=== PATIENT | male | born 1940 | race Hispanic/Latino ===

== ENCOUNTER 2017-10-22 17:43 | Inpatient (IN) | payer MEDICARE ==
[~2017-10-22] VITALS: Ht 182.9 cm; Wt 90.3 kg
[~2017-10-22 17:43] MED LIST: ENALAPRIL; GLYBURIDE 6 MG; HYDROCODONE 7.5/325; METFORMIN 1000; Z.0.ATORVASTATIN CA2
[2017-10-22] MEDS ORDERED: IBUPROFEN 400 MG TAB PO STA (18:08)
[2017-10-22] MEDS ORDERED: SODIUM CHLORIDE 0.9% 1000ML 1,000 ML IV STA (18:08)
[2017-10-22] MEDS ORDERED: SODIUM CHLORIDE 0.9% 1000ML 1,000 ML ONE (18:09)
[2017-10-22] MEDS ORDERED: ONDANSETRON HCL 4 MG ORAL DISINTEGRATING TAB PO ONE (18:15)
[2017-10-22] MEDS ORDERED: CEFTRIAXONE SOD 1 GM VIAL IM ONE (18:15)
[2017-10-22 18:16] LABS: BASOPHILS % 0.2 % (0.0-1.0); HEMATOCRIT 42.7 % (38.2-49.6); LYMPHOCYTES # (AUTO) 0.6 (1.0-3.2); LYMPHOCYTES % 4.8 % (18.0-39.1); MEAN CORPUSCULAR HEMOGLOBIN 29.7 pg (28-32); MEAN CORPUSCULAR HGB CONC 35.1 g/dL (31-35); MEAN CORPUSCULAR VOLUME 84.6 fL (81-99); MONOCYTES # (AUTO) 0.7 (0.2-0.8); MONOCYTES % 5.7 % (4.4-11.3); NEUTROPHILS # (AUTO) 10.5 (2.1-6.9); PLATELET COUNT 160 x10e3/uL (140-360); RED BLOOD COUNT 5.05 x10e6/uL (4.3-5.7); RED CELL DISTRIBUTION WIDTH 12.5 % (11.7-14.4)
[2017-10-22] MEDS ORDERED: DIATRIZOATE MEGL/DIATRIZOA SOD 30 ML BTL PO ONE (18:20)
[2017-10-22 18:27] LABS: INR 1.15; PARTIAL THROMBOPLASTIN TIME 28.6 seconds (23.8-35.5); PROTHROMBIN TIME 13.8 seconds (11.9-14.5)
[2017-10-22] MEDS ORDERED: ACETAMINOPHEN 1000 MG/100 ML IV STA ×2 (18:30→18:45)
[2017-10-22 18:38] LABS: ALANINE AMINOTRANSFERASE 18 IU/L (0-55); ALBUMIN 3.9 g/dL (3.5-5.0); ALBUMIN/GLOBULIN RATIO 1.2 (0.8-2.0); ALKALINE PHOSPHATASE 66 IU/L (40-150); AMYLASE 35 U/L (25-125); ANION GAP 14.9 mmol/L (8-16); BLOOD UREA NITROGEN 19 mg/dL (7-26); BUN/CREATININE RATIO 12 (6-25); CALCIUM 9.5 mg/dL (8.4-10.2); CARBON DIOXIDE 21 mmol/L (22-29); CHLORIDE 102 mmol/L (98-107); CREATINE KINASE 51 IU/L (30-200); CREATININE, SERUM 1.61 mg/dL (0.72-1.25); EST GLOMERULAR FILTRATION RATE 42 ML/MIN (60-); GLUCOSE 213 mg/dL (74-118); LIPASE 7 U/L (8-78); MAGNESIUM 1.8 MG/DL (1.3-2.1); POTASSIUM 3.9 mmol/L (3.5-5.1); SODIUM 134 mmol/L (136-145)
[2017-10-22] MEDS ORDERED: ACETAMINOPHEN 1000 MG/100 ML IV ONE (19:00)
[2017-10-22 19:09] LABS: CLARITY,URINE CLEAR (CLEAR); COLOR,URINE YELLOW (YELLOW); LEUKOCYTE ESTERASE ,URINE NEGATIVE (NEGATIVE); NITRITE,URINE NEGATIVE (NEGATIVE)
[2017-10-22 19:10] LABS: BILIRUBIN,URINE NEGATIVE (NEGATIVE); KETONES,URINE 2+ (NEGATIVE); PROTEIN,URINE DIPSTICK 1+ (NEGATIVE); URINE UROBILINOGEN 0.2 mg/dL (0.2 - 1)
[2017-10-22 19:22] LABS: EPITHELIAL CELLS,URINE RARE /LPF; WBC,URINE (MAN) 0-5 /HPF (0-5)
--- NOTE | 2017-10-22 19:30 | Diagnostic Imaging Report ---
Portable chest x-ray INDICATION: Fever, vomiting COMPARISON: None FINDINGS: Frontal view of the chest obtained at 1908 hours. The cardiac silhouette is normal. The pulmonary vascular markings are normal. The lungs demonstrate small focus of atelectasis over the right diaphragm. 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 Left lung is clear. The costophrenic angles are sharp. There is no pneumothorax. The osseous structures are intact and normal in appearance. IMPRESSION: Small focus of atelectasis over the right diaphragm. Signed by: Dr. Vonnie Madrigal MD on 10/22/2017 7:26 PM
[2017-10-22] MEDS ORDERED: PROMETHAZINE 12.5MG/ NACL 0.9% 12.5 MG/50 ML BAG IV ONE (20:00)
--- NOTE | 2017-10-22 20:25 | Diagnostic Imaging Report ---
CT Abdomen and Pelvis without contrast INDICATION: Abdominal pain nausea, vomiting TECHNIQUE: Thin collimation axial images obtained from the diaphragm to the level of the pubic symphysis without nonionic intravenous contrast. Oral contrast was administered. RADIATION DOSE: Total DLP: 593.14 mGy*cm Estimated effective dose: (DLP x 0.015 x size factor) mSv CTDIvol has been reviewed. It is below the limits set by the Radiation Protocol Committee (RPC). COMPARISON: None. ABDOMEN FINDINGS: Lung Bases: Bibasilar microatelectasis. Pericardial effusion measures 11 mm. Mild burden of coronary artery atherosclerosis. There is mild eventration of the right diaphragm. Liver: Decreased attenuation. No mass. Gallbladder: Present and appears normal. No ductal dilatation. Pancreas: Mild fatty atrophy. No mass or ductal dilatation. Spleen: Normal size without mass. Adrenal Glands: No evidence for mass. Kidneys: Right: No renal calculus. No cortical mass or hydronephrosis Left: No renal calculus. Low attenuating lesion in the upper pole measures 14 mm. No hydronephrosis Lymph Nodes: No lymphadenopathy. Aorta: Normal in diameter with scattered calcifications PELVIS FINDINGS: Bowel: Stomach: Contains enteric contrast and is normal.. Small Bowel: Contains enteric contrast in the proximal jejunum. No bowel wall thickening or dilatation.. Large Bowel: Unopacified. No mural thickening or dilatation. No diverticula. Appendix: Normal. Bladder: Submucosal fat deposition at the dome. No intraluminal calculi. Prostate gland measures 4.3 x 6.1 cm. Ureters: No ureteral dilatation or calculus. Soft tissues: Fat-containing left inguinal hernia. A skin tag in the right lower quadrant measures 12 mm. Bones: Mild to moderate degenerative changes of the spine. No compression deformities. No lytic or blastic lesions. IMPRESSION: 1. No evidence for bowel obstruction or inflammation. Normal appendix. 2. No evidence of renal calculus or obstructive uropathy. 3. Low attenuating lesion in the left kidney is likely a cyst. 4. Hepatic steatosis. 5. Bibasilar atelectasis. Small pericardial effusion. Signed by: Dr. Vonnie Madrigal MD on 10/22/2017 8:21 PM
[2017-10-22] MEDS ORDERED: DEXTROSE 50% SYRINGE 50 ML IV PRN (21:00)
[2017-10-22] MEDS ORDERED: MORPHINE SULFATE 2 MG/ML SYR IV PRN (21:00)
[2017-10-22] MEDS ORDERED: ONDANSETRON HCL 4 MG ORAL DISINTEGRATING TAB PO PRN (21:00)
--- OUTSIDE RECORDS SUMMARY | 2017-10-22 21:39 | XMS REPORT ---
Author [facility] Address Unknown Phone Unavailable Care Team Providers Care Core Mounter Name Role Phone FREDY RICO Unavailable Unavailable Problems This patient has no known problems. Allergies, Adverse Reactions, Alerts This patient has no known allergies or adverse reactions. Medications This patient has no known medications. 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 The cardiac silhouette is normal. The pulmonary vascular markings are normal. The lungs demonstrate small focus of atelectasis over the right diaphragm. 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 Left lung is clear. The costophrenic angles are sharp. There is no pneumothorax. The osseous structures are intact and normal in appearance. IMPRESSION: Small focus of atelectasis over the right diaphragm. Signed by: Dr. Lauren Madrigal MD on 10/22/2017 7:26 PM Dictated By: LAUREN MADRIGAL MD 25 Transcribed By: ELISA on 10/22/171925 COPY TO: ADRI GONZALEZ NP CT ABDOMEN/PELVIS WO [place] [address] Patient Name: CHESTER EDOUARD MR #: [id number] : 1940 Age/Sex: 76/M Req # : [id number] Adm Physician: Ordered by: ADRI GONZALEZ NP Report #: [id number] Location: ER Room/Bed: Procedure: 0530- 0031 CT/CT ABDOMEN/PELVIS WO Exam Date: 10/22/17 Exam Time: 1949 REPORT STATUS: Signed CT Abdomen and Pelvis without contrast INDICATION: Abdominal pain nausea, vomiting TECHNIQUE: Thin collimation axial images obtained from the diaphragm to the level of the pubic symphysis without nonionic intravenous contrast. Oral contrast was administered. RADIATION DOSE: Total DLP: 593.14 mGy*cm Estimated effective dose: (DLP x 0.015 x size factor) mSv CTDIvol has been reviewed. It is below the limits set by the Radiation Protocol Committee (RPC). COMPARISON: None. ABDOMEN FINDINGS: Lung Bases: Bibasilar microatelectasis. Pericardial effusion measures 11 mm. Mild burden of coronary artery atherosclerosis. There is mild eventration of the right diaphragm. Liver: Decreased attenuation. No mass. Gallbladder: Present and appears normal. No ductal dilatation. Pancreas: Mild fatty atrophy. No mass or ductal dilatation. Spleen: Normal size without mass. Adrenal Glands: No evidence for mass. Kidneys: Right: No renal calculus. No cortical mass or hydronephrosis Left: No renal calculus. Low attenuating lesion in the upper pole measures 14 mm. No hydronephrosis Lymph Nodes: No lymphadenopathy. Aorta: Normal in diameter with scattered calcifications PELVIS FINDINGS: Bowel: Stomach: Contains enteric contrast and is normal.. Small Bowel: Contains enteric contrast in the proximal jejunum. No bowel wall thickening or dilatation.. Large Bowel: Unopacified. No mural thickening or dilatation. No diverticula. Appendix: Normal. Bladder: Submucosal fat deposition at the dome. No intraluminal calculi. Prostate gland measures 4.3 x 6.1 cm. Ureters: No ureteral dilatation or calculus. Soft tissues: Fat-containing left inguinal hernia. A skin tag in the right lower quadrant measures 12 mm. Bones: Mild to moderate degenerative changes of the spine. No compression deformities. No lytic or blastic lesions. IMPRESSION: 1. No evidence for bowel obstruction or inflammation. Normal appendix. 2. No evidence of renal calculus or obstructive uropathy. 3. Low attenuating lesion in the left kidney is likely a cyst. 4. Hepatic steatosis. 5. Bibasilar atelectasis. Small pericardial effusion. Signed by: Dr. Lauren Madrigal MD on 2017 8:21 PM Dictated By: LAUREN MADRIGAL MD 20 Transcribed By: ELISA on 10/22/172020 COPY TO: ADRI GONZALEZ NP
[2017-10-23] VITALS (8 sets, daily range): BP systolic 114–178; BP diastolic 59–96
[2017-10-23] MEDS ORDERED: GABAPENTIN300 MG PO (04:22)
[2017-10-23] MEDS ORDERED: GLIMEPIRIDE2 MG PO (04:22)
[2017-10-23] MEDS ORDERED: LOSARTAN POTASS25 MG PO (04:22)
[2017-10-23] MEDS ORDERED: TAMSULOSIN HCL0.4 MG PO (04:22)
[2017-10-23 06:01] LABS: BASOPHILS % 0.2 % (0.0-1.0); HEMATOCRIT 38.4 % (38.2-49.6); HEMOGLOBIN 13.4 g/dL (14.0-18.0); LYMPHOCYTES # (AUTO) 0.9 (1.0-3.2); MEAN CORPUSCULAR HEMOGLOBIN 30.2 pg (28-32); MEAN CORPUSCULAR HGB CONC 34.9 g/dL (31-35); MEAN CORPUSCULAR VOLUME 86.7 fL (81-99); MONOCYTES # (AUTO) 1.3 (0.2-0.8); MONOCYTES % 10.9 % (4.4-11.3); NEUTROPHILS # (AUTO) 9.3 (2.1-6.9); NEUTROPHILS % 80.4 % (38.7-80.0); PLATELET COUNT 142 x10e3/uL (140-360); RED BLOOD COUNT 4.43 x10e6/uL (4.3-5.7); RED CELL DISTRIBUTION WIDTH 12.4 % (11.7-14.4)
[2017-10-23 06:38] LABS: ALBUMIN 3.2 g/dL (3.5-5.0); ALBUMIN/GLOBULIN RATIO 1.1 (0.8-2.0); ANION GAP 12.1 mmol/L (8-16); CALCIUM 8.9 mg/dL (8.4-10.2); CREATININE, SERUM 1.44 mg/dL (0.72-1.25); POTASSIUM 4.1 mmol/L (3.5-5.1)
[2017-10-23] MEDS: INSULIN REGULAR, HUMAN 100 UNIT/1 ML 3ML VIAL SQ SCH ×5 (07:30→20:25)
[2017-10-23] MEDS: CEFEPIME HCL 1 GM VIAL IV SCH ×2 (09:30→20:42)
[2017-10-23] MEDS ORDERED: SODIUM CHLORIDE 0.9% 250ML 250 ML ONE (09:47)
[2017-10-23] MEDS: VANCOMYCIN 750MG/NS 150ML IVPB 150 ML IV SCH ×2 (10:00→20:42)
--- NOTE | 2017-10-23 10:23 | History and Physical ---
CHIEF COMPLAINT: Left knee swelling and pain and abdominal pain. HISTORY OF PRESENT ILLNESS: Patient is a 76-year-old male complaining of left knee pain for the past few days and then subsequent abdominal pain associated with nausea and vomiting. Patient came in with a high fever through the emergency room. The patient had a fever of 103.1. Blood pressure was elevated. He had his left knee replacement approximately 6 months ago. It was well until recently. The patient is otherwise stable at this time. PAST MEDICAL HISTORY 1. Diabetes, type 2, on oral hypoglycemic medications. 2. Dyslipidemia. 3. Osteoarthritis with left knee replacement. 4. Hypertension. PAST SURGICAL HISTORY: Left knee replacement. SOCIAL HISTORY: Patient does not smoke or use alcohol. No recreational drugs. ALLERGIES: NO KNOWN ALLERGIES. HOME MEDICATIONS: List is reviewed. REVIEW OF SYSTEMS: Left knee pain and swelling and subsequent abdominal pain, nausea and vomiting. Fever. PHYSICAL EXAMINATION VITAL SIGNS: Temperature is 103. Blood pressure 196/98. Pulse rate 117. Respirations 30. GENERAL: The patient is awake. He is alert. He is not in any distress. HEENT: Normocephalic, atraumatic, anicteric. NECK: Supple grossly. PULMONARY: Diminished breath sounds at bases. No coarses or wheezing. CARDIOVASCULAR: S1 and S2. Tachycardia. ABDOMEN: Soft. No distention. EXTREMITIES: No gross cyanosis. There is edema of the left knee, tender to touch and warm. NEUROLOGIC: No focal deficit. CT of the abdomen and pelvis: No acute abnormality. Bibasilar atelectasis. There is small pericardial effusion. Chest x-ray is unremarkable. LABORATORY: WBC is 11.8, hemoglobin 15, hematocrit 43, platelets 160. Chemistry: Sodium is 136, potassium 4.1, chloride 103, bicarb 23, BUN 19, creatinine 1.4. Glucose is 161. Urinalysis is positive for 2+ leukocyte esterase. IMPRESSION 1. High fever of 103.1. 2. Left knee swelling and tender with warmness, possible knee infection. 3. Abdominal pain, nausea and vomiting, improving. 4. Atelectasis of the lung. PLAN: Vancomycin IV and cefepime IV. Consultation with Dr. Romario Montana of orthopedics. CT of chest and left knee without contrast. Home medications. Insulin treatment. Insulin sliding-scale coverage. Pain control. Will monitor the patient closely at this time. Job#: [id number]
--- NOTE | 2017-10-23 12:42 | Diagnostic Imaging Report ---
PROCEDURE:CT CHEST WITHOUT CONTRAST COMPARISON:Patients [facility], DX, CHEST SINGLE (PORTABLE), 10/22/2017, 19:08. [facility], CT, CT ABDOMEN/PELVIS WO, 10/22/2017, 19:56. INDICATIONS:Fever TECHNIQUE: Routine protocol Volumetric CT abdomen and pelvis. No intravenous or enteric contrast. Multiplanar reformatted images. DLP: 545.39 FINDINGS: Lungs: Mild bibasilar interstitial scar. No focal airspace disease. Airways: Trace bibasilar cylindrical bronchiectasis. No bronchial wall thickening. Otherwise, normal. Pleura: Trace right effusion. No left effusion. Lymph nodes: Normal Pulmonary arteries: Normal caliber. Pulmonary diameter 2.5 cm. Normal intraparenchymal pulmonary artery caliber. Thoracic aorta and great vessels: Normal caliber. Mild arch and descending thoracic aorta atherosclerosis. Heart and pericardium: Normal size. Trace pericardial effusion without pericardial thickening. Moderate coronary artery calcification. Subdiaphragmatic organs: Imaged portions are grossly unremarkable. Skeleton: Intact. Soft tissues: Normal CONCLUSION: Trace right pleural effusion. No conspicuous etiology for fever. Dictated by: Rod Copeland M.D. on 10/23/2017 at 12:44 Electronically approved by: Rod Copeland M.D. on 10/23/2017 at 12:44
[2017-10-23] MEDS: ACETAMINOPHEN 325 MG TAB PO PRN (16:40)
--- NOTE | 2017-10-23 18:13 | Diagnostic Imaging Report ---
CT scan of the LEFT KNEE, WITHOUT injected contrast. TECHNIQUE: Standard departmental protocols were used. Sagittal and coronal reformatted images were obtained. HISTORY: Swelling, pain, fever, surgery in March COMPARISON: None available FINDINGS: Beam carias artifact partially limits regional evaluation. Bone: No acute displaced fracture. No aggressive osseous lesion. Joint: Status post total knee arthroplasty. No evidence of hardware loosening or failure, within the limitations of this exam. Moderate amount of nonspecific low-density fluid in the region of the suprapatellar joint recess. Soft Tissues: Nonspecific infrapatellar fat stranding, in the region of Hoffa's fat pad. IMPRESSION: 1. Status post total knee arthroplasty. Recommend correlation with routine knee radiographs given the inherent metallic beam carias artifact on CT. 2. Moderate nonspecific low density fluid in the region of the suprapatellar joint recess. 3. Nonspecific infrapatellar fat stranding, may reflect edema, fluid, and/or inflammatory changes given the provided history. Signed by: Dr. Santi Oleary D.O., M.M.M. on 10/23/2017 6:09 PM
[2017-10-23] MEDS: HYDROCODONE/APAP 7.5MG-325MG 1 EA TAB PO PRN (21:19)
[2017-10-24] VITALS (7 sets, daily range): BP systolic 136–165; BP diastolic 74–92
[2017-10-24] MEDS: ACETAMINOPHEN 325 MG TAB PO PRN ×2 (06:00→21:22)
[2017-10-24 07:47] LABS: BASOPHILS % 0.1 % (0.0-1.0); HEMOGLOBIN 14.2 g/dL (14.0-18.0); LYMPHOCYTES # (AUTO) 0.9 (1.0-3.2); LYMPHOCYTES % 7.7 % (18.0-39.1); MEAN CORPUSCULAR HEMOGLOBIN 29.8 pg (28-32); MEAN CORPUSCULAR HGB CONC 34.6 g/dL (31-35); MEAN CORPUSCULAR VOLUME 86.1 fL (81-99); MONOCYTES # (AUTO) 0.9 (0.2-0.8); NEUTROPHILS # (AUTO) 9.9 (2.1-6.9); NEUTROPHILS % 83.8 % (38.7-80.0); PLATELET COUNT 160 x10e3/uL (140-360); RED BLOOD COUNT 4.76 x10e6/uL (4.3-5.7); RED CELL DISTRIBUTION WIDTH 12.2 % (11.7-14.4)
[2017-10-24] MEDS: CEFEPIME HCL 1 GM VIAL IV SCH ×2 (10:02→21:21)
[2017-10-24] MEDS: INSULIN REGULAR, HUMAN 100 UNIT/1 ML 3ML VIAL SQ SCH ×4 (10:17→21:20)
[2017-10-24] MEDS: VANCOMYCIN 750MG/NS 150ML IVPB 150 ML IV SCH ×2 (10:34→21:54)
[2017-10-24] MEDS: HYDROCODONE/APAP 7.5MG-325MG 1 EA TAB PO PRN (10:36)
[2017-10-24 10:44] LABS: BODY FLUID APPEARANCE SL.CLOUDY; BODY FLUID COLOR YELLOW; BODY FLUID TYPE SYNOVIAL
[2017-10-24 11:03] LABS: RBC,BODY FLUID 1287 cells/uL; WBC,BODY FLUID 36531 cells/uL
[2017-10-24 12:57] LABS: LYMPHOCYTES,BODY FLUID 2 %; MONO/MACROPHG,BODY FLUID 2 %; NEUTROPHILS,BODY FLUID 96 %
[2017-10-24] MEDS: GABAPENTIN 300 MG CAP PO SCH (17:00)
[2017-10-24] MEDS: GLIMEPIRIDE 2 MG TAB PO SCH (17:00)
[2017-10-24] MEDS ORDERED: SODIUM CHLORIDE 0.9% 250ML 250 ML ONE (21:48)
[2017-10-25 01:14] VITALS: BP 152/74
[2017-10-25 06:35] VITALS: BP 168/77
[2017-10-25] MEDS: INSULIN REGULAR, HUMAN 100 UNIT/1 ML 3ML VIAL SQ SCH ×5 (07:30→16:51)
[2017-10-25 08:29] VITALS: BP 159/85
[2017-10-25] MEDS: HYDROCODONE/APAP 7.5MG-325MG 1 EA TAB PO PRN ×2 (08:36→08:38)
[2017-10-25] MEDS: GLIMEPIRIDE 2 MG TAB PO SCH ×2 (09:00→16:50)
[2017-10-25] MEDS: TAMSULOSIN HCL 0.4 MG CAP PO SCH (09:00)
[2017-10-25] MEDS: GABAPENTIN 300 MG CAP PO SCH ×2 (09:00→17:00)
[2017-10-25] MEDS: LOSARTAN POTASSIUM 25 MG TAB PO SCH (09:00)
[2017-10-25] MEDS: CEFEPIME HCL 1 GM VIAL IV SCH ×2 (09:30→20:35)
[2017-10-25] MEDS: VANCOMYCIN 750MG/NS 150ML IVPB 150 ML IV SCH ×2 (10:00→21:36)
[2017-10-25 16:28] VITALS: BP 170/86
[2017-10-25] MEDS ORDERED: BISACODYL 10 MG SUPP PR NR (19:15)
[2017-10-25] MEDS ORDERED: MAGNESIUM HYDROXIDE 30 ML UDC PO PRN (19:15)
[2017-10-25 19:31] VITALS: BP 147/78
[2017-10-25] MEDS: ACETAMINOPHEN 325 MG TAB PO PRN (19:38)
[2017-10-25] MEDS: SENNA-S TABLET PO SCH (20:35)
[2017-10-26 00:20] VITALS: BP 131/74
[2017-10-26 04:45] VITALS: BP 139/75
[2017-10-26 07:28] VITALS: BP 150/85
[2017-10-26] MEDS: INSULIN REGULAR, HUMAN 100 UNIT/1 ML 3ML VIAL SQ SCH ×4 (07:30→21:09)
[2017-10-26] MEDS: LOSARTAN POTASSIUM 25 MG TAB PO SCH (09:00)
[2017-10-26] MEDS: GLIMEPIRIDE 2 MG TAB PO SCH ×2 (09:00→17:12)
[2017-10-26] MEDS: SENNA-S TABLET PO SCH ×2 (09:00→21:08)
[2017-10-26] MEDS: TAMSULOSIN HCL 0.4 MG CAP PO SCH (09:00)
[2017-10-26] MEDS: GABAPENTIN 300 MG CAP PO SCH ×2 (09:00→17:12)
[2017-10-26] MEDS: CEFEPIME HCL 1 GM VIAL IV SCH ×2 (09:30→21:09)
[2017-10-26] MEDS: VANCOMYCIN 750MG/NS 150ML IVPB 150 ML IV SCH ×3 (10:00→23:40)
[2017-10-26] MEDS: ACETAMINOPHEN 325 MG TAB PO PRN ×2 (11:30→19:33)
[2017-10-26 11:36] VITALS: BP 142/82
[2017-10-26] MEDS ORDERED: SODIUM CHLORIDE 0.9% 250ML 250 ML ONE (11:49)
[2017-10-26 20:19] VITALS: BP 160/87
--- NOTE | 2017-10-26 22:01 | Consultation ---
DATE OF CONSULTATION: REASON FOR CONSULTATION: Fevers, chills, concern about infected knee. HISTORY OF PRESENT ILLNESS: This patient who is a 77-year-old male, 6 months ago had total knee replacement on the left. He was doing well for 6 months, which was done by Dr. Stauffer. Now, he is coming with fever, chills for 1 day, swelling and pain in the knee. Patient is being admitted. PAST MEDICAL HISTORY: Diabetes and hypertension. PAST SURGICAL HISTORY: Total knee replacement. ALLERGIES: NKA. SOCIAL HISTORY: There is no smoking, drug abuse, alcohol abuse. FAMILY HISTORY: Unremarkable. PHYSICAL EXAMINATION GENERAL: He is currently alert, oriented, does not seem to be in acute distress. VITALS: Stable. Currently afebrile. HEENT: Not icteric. NECK: Supple. CHEST: Clear. EXTREMITIES: The knee, there is effusion, there is redness and swelling. The fluid was aspirated, showed WBC of 36,000. IMPRESSION: Concern about infected knee. Agree with vancomycin, cefepime. Will keep the vancomycin level at 15. Obtain a sed rate, C-reactive protein. Culture still pending. Will follow. Job#: [id number] CQ
[2017-10-26 23:19] VITALS: BP 160/87
[2017-10-27 00:13] VITALS: BP 120/58
[2017-10-27 05:38] VITALS: BP 141/72
[2017-10-27 06:15] LABS: BASOPHILS % 0.3 % (0.0-1.0); EOSINOPHILS % 0.5 % (0.0-6.0); HEMATOCRIT 35.9 % (38.2-49.6); HEMOGLOBIN 12.3 g/dL (14.0-18.0); LYMPHOCYTES # (AUTO) 0.7 (1.0-3.2); MEAN CORPUSCULAR HEMOGLOBIN 29.3 pg (28-32); MEAN CORPUSCULAR HGB CONC 34.3 g/dL (31-35); MEAN CORPUSCULAR VOLUME 85.5 fL (81-99); MONOCYTES # (AUTO) 0.7 (0.2-0.8); MONOCYTES % 11.1 % (4.4-11.3); NEUTROPHILS # (AUTO) 4.9 (2.1-6.9); NEUTROPHILS % 76.2 % (38.7-80.0); PLATELET COUNT 187 x10e3/uL (140-360); RED CELL DISTRIBUTION WIDTH 12.3 % (11.7-14.4)
[2017-10-27 06:28] LABS: ANION GAP 11.6 mmol/L (8-16); CALCIUM 8.9 mg/dL (8.4-10.2); CREATININE, SERUM 1.18 mg/dL (0.72-1.25); POTASSIUM 3.6 mmol/L (3.5-5.1)
[2017-10-27] MEDS: INSULIN REGULAR, HUMAN 100 UNIT/1 ML 3ML VIAL SQ SCH ×5 (08:10→20:25)
[2017-10-27] MEDS: LOSARTAN POTASSIUM 25 MG TAB PO SCH (08:52)
[2017-10-27] MEDS: GLIMEPIRIDE 2 MG TAB PO SCH ×2 (08:52→16:34)
[2017-10-27] MEDS: ACETAMINOPHEN 325 MG TAB PO PRN ×2 (08:52→20:44)
[2017-10-27] MEDS: CEFEPIME HCL 1 GM VIAL IV SCH ×2 (08:52→20:44)
[2017-10-27] MEDS: GABAPENTIN 300 MG CAP PO SCH ×2 (08:52→16:34)
[2017-10-27] MEDS: SENNA-S TABLET PO SCH ×2 (08:52→20:44)
[2017-10-27] MEDS: TAMSULOSIN HCL 0.4 MG CAP PO SCH (08:52)
[2017-10-27 09:45] VITALS: BP 170/84
[2017-10-27] MEDS: VANCOMYCIN 750MG/NS 150ML IVPB 150 ML IV SCH ×2 (14:00→22:00)
[2017-10-27 16:36] VITALS: BP 160/84
[2017-10-27 20:27] VITALS: BP 157/70
[2017-10-28] VITALS: BP 129/63
[2017-10-28 07:09] LABS: BASOPHILS % 0.3 % (0.0-1.0); EOSINOPHILS # (AUTO) 0.1 (0.0-0.4); EOSINOPHILS % 0.8 % (0.0-6.0); HEMATOCRIT 34.9 % (38.2-49.6); HEMOGLOBIN 12.3 g/dL (14.0-18.0); LYMPHOCYTES # (AUTO) 0.9 (1.0-3.2); LYMPHOCYTES % 14.6 % (18.0-39.1); MEAN CORPUSCULAR HEMOGLOBIN 29.9 pg (28-32); MEAN CORPUSCULAR HGB CONC 35.2 g/dL (31-35); MEAN CORPUSCULAR VOLUME 84.7 fL (81-99); MONOCYTES # (AUTO) 0.7 (0.2-0.8); MONOCYTES % 10.7 % (4.4-11.3); NEUTROPHILS # (AUTO) 4.5 (2.1-6.9); NEUTROPHILS % 73.3 % (38.7-80.0); PLATELET COUNT 223 x10e3/uL (140-360); RED BLOOD COUNT 4.12 x10e6/uL (4.3-5.7); RED CELL DISTRIBUTION WIDTH 12.2 % (11.7-14.4)
[2017-10-28] MEDS: INSULIN REGULAR, HUMAN 100 UNIT/1 ML 3ML VIAL SQ SCH ×4 (07:30→21:05)
[2017-10-28 07:33] LABS: BLOOD UREA NITROGEN 15 mg/dL (7-26); BUN/CREATININE RATIO 14 (6-25); CALCIUM 8.9 mg/dL (8.4-10.2); CARBON DIOXIDE 25 mmol/L (22-29); CHLORIDE 105 mmol/L (98-107); CREATININE, SERUM 1.11 mg/dL (0.72-1.25); EST GLOMERULAR FILTRATION RATE > 60 ML/MIN (60-); GLUCOSE 111 mg/dL (74-118); SODIUM 137 mmol/L (136-145)
[2017-10-28] MEDS: GLIMEPIRIDE 2 MG TAB PO SCH ×2 (09:00→18:55)
[2017-10-28] MEDS: GABAPENTIN 300 MG CAP PO SCH ×2 (09:00→18:55)
[2017-10-28] MEDS: TAMSULOSIN HCL 0.4 MG CAP PO SCH (09:00)
[2017-10-28] MEDS: LOSARTAN POTASSIUM 25 MG TAB PO SCH (09:00)
[2017-10-28] MEDS: CEFEPIME HCL 1 GM VIAL IV SCH ×2 (09:00→21:30)
[2017-10-28] MEDS: SENNA-S TABLET PO SCH ×2 (09:00→21:00)
[2017-10-28] MEDS: ACETAMINOPHEN 325 MG TAB PO PRN ×2 (09:01→21:45)
[2017-10-28 09:30] VITALS: BP 191/86
[2017-10-28 09:58] VITALS: BP 191/86
--- NOTE | 2017-10-28 12:41 | Diagnostic Imaging Report ---
PROCEDURE: A single AP view of the chest. COMPARISON: None. INDICATIONS: PICC LINE PLACEMENT FINDINGS: Lines/tubes: Right PICC with its tip at the cavoatrial junction. Lungs: The lungs are well inflated and clear. There is no evidence of pneumonia or pulmonary edema. Pleura: There is no pleural effusion or pneumothorax. Heart and mediastinum: The heart and the mediastinum are unremarkable. Bones: No acute bony abnormality. IMPRESSION: No acute cardiopulmonary disease. Kit Shelton D.O. Dictated by: Kit Shelton D.O. on 10/28/2017 at 12:44 Electronically approved by: Kit Shelton D.O. on 10/28/2017 at 12:44
[2017-10-28 16:02] VITALS: BP 152/73
[2017-10-28 17:50] LABS: BODY FLUID APPEARANCE TURBID; BODY FLUID COLOR STRAW; BODY FLUID TYPE SYNOVIAL
[2017-10-28 18:36] LABS: RBC,BODY FLUID 257 cells/uL; WBC,BODY FLUID 7475 cells/uL
[2017-10-28 19:17] LABS: MONO/MACROPHG,BODY FLUID 2 %; NEUTROPHILS,BODY FLUID 98 %
[2017-10-28] MEDS ORDERED: SODIUM CHLORIDE 0.9% 250ML 250 ML ONE (22:00)
[2017-10-28] MEDS: VANCOMYCIN 750MG/NS 150ML IVPB 150 ML IV SCH (22:00)
[2017-10-29] MEDS: INSULIN REGULAR, HUMAN 100 UNIT/1 ML 3ML VIAL SQ SCH ×4 (07:30→21:00)
[2017-10-29 08:15] VITALS: BP 144/72
[2017-10-29 09:20] VITALS: BP 144/72
[2017-10-29] MEDS: LOSARTAN POTASSIUM 25 MG TAB PO SCH (09:20)
[2017-10-29] MEDS: VANCOMYCIN 750MG/NS 150ML IVPB 150 ML IV SCH ×2 (09:20→22:00)
[2017-10-29] MEDS: TAMSULOSIN HCL 0.4 MG CAP PO SCH (09:20)
[2017-10-29] MEDS: SENNA-S TABLET PO SCH ×2 (09:20→22:05)
[2017-10-29] MEDS: GLIMEPIRIDE 2 MG TAB PO SCH ×2 (09:20→17:00)
[2017-10-29] MEDS: GABAPENTIN 300 MG CAP PO SCH ×2 (09:20→17:00)
[2017-10-29] MEDS: CEFEPIME HCL 1 GM VIAL IV SCH ×2 (09:27→21:45)
[2017-10-29] MEDS ORDERED: SENNOSIDES 8.6 MG TAB PO SCH (09:30)
[2017-10-29] MEDS: HYDROCODONE/APAP 10MG-325MG TAB PO PRN (10:08)
[2017-10-29 12:42] VITALS: BP 131/68
--- NOTE | 2017-10-29 15:04 | Diagnostic Imaging Report ---
Labeled WBC Study Reason for exam: 77 M s/p left knee arthroplasty in 03/2017 with worsening pain since time of surgery. Comparison: CT left knee 09/24/2017; Report: The patient's own white blood cells were labeled with Tc-99m HMPAO 17 mCi by a commercial radiopharmacy. Images of the feet were obtained at 2.5 hours post administration of the labeled white blood cells. On the images at 2.5 hours post reinjection of the labeled WBC's, diffusely increased tracer activity is seen contiguously in the soft tissues of the left thigh distally and in the left lower leg proximally and surrounding the knee joint. Focal areas of increased tracer are seen surrounding the knee joint but not involving the stems of either the femoral or tibial components of the left knee prosthesis. On the images are 24 hours post reinjection of the labeled WBC's, increased tracer is seen along the femoropatellar ligament and diffusely surrounding the ligament. Focal increased tracer seen around the left knee is slightly decreased compared to the 2.5 hour images. No tracer is seen along either the femoral or tibial components of the left knee prosthesis. IMPRESSION: 1. Labeled white blood cell study has limited value in assessment of the painful prosthesis that is less than 1 year. This patient's arthroplasty was just under 7 months ago. Nonetheless, very definite soft tissue inflammation that involves the left lower extremity and and more focally in the femoropatellar ligament and adjacent soft tissue, but no tracer is seen along either component of the left knee prosthesis to suggest that infection or loosening of the prosthesis is present. 2. Three-phase bone scan has been ordered for this patient, however, the study lacks specificity in the setting of the painful prosthesis, especially for prostheses placed less than one year previously. Three-phase bone scan won't add specific information to this evaluation. Please contact Nuclear Medicine if study should still be performed. Signed by: Dr. Cecelia Lambert M.D. on 10/29/2017 3:00 PM
[2017-10-29 16:08] VITALS: BP 143/76
[2017-10-29 20:00] VITALS: BP 158/79
[2017-10-29 20:02] VITALS: BP 158/79
[2017-10-29] MEDS: ACETAMINOPHEN 325 MG TAB PO PRN (21:39)
[2017-10-30] VITALS (10 sets, daily range): BP systolic 124–178; BP diastolic 60–87
[2017-10-30] MEDS: HYDROCODONE/APAP 10MG-325MG TAB PO PRN (06:53)
[2017-10-30] MEDS: INSULIN REGULAR, HUMAN 100 UNIT/1 ML 3ML VIAL SQ SCH ×4 (07:30→20:35)
[2017-10-30] MEDS: SENNA-S TABLET PO SCH ×2 (08:40→22:23)
[2017-10-30] MEDS: TAMSULOSIN HCL 0.4 MG CAP PO SCH (08:40)
[2017-10-30] MEDS: LOSARTAN POTASSIUM 25 MG TAB PO SCH (08:40)
[2017-10-30] MEDS: GLIMEPIRIDE 2 MG TAB PO SCH ×2 (08:40→16:52)
[2017-10-30] MEDS: CEFEPIME HCL 1 GM VIAL IV SCH (08:40)
[2017-10-30] MEDS: GABAPENTIN 300 MG CAP PO SCH ×2 (08:40→16:52)
[2017-10-30] MEDS: VANCOMYCIN 750MG/NS 150ML IVPB 150 ML IV SCH ×2 (10:15→21:30)
--- NOTE | 2017-10-30 13:57 | Discharge Summary ---
CONSULTANTS 1. Dr. Santhosh Olmstead. 2. Dr. Brook Garrett. FINAL DIAGNOSES 1. Septic left knee. 2. Fever, resolved. 3. Leukocytosis, resolved. 4. Ambulatory dysfunction due to left knee infection and swelling. SUMMARY: This is a 77-year-old male who came in with high fever 103. Patient has had extensive workup. He has multiple imaging tests. The chest CT was done, was unremarkable. The left knee was done on October 23, shows status post total knee arthroplasty. There is moderate nonspecific low-density fluid in the region of the suprapatellar joint recess. There was nonspecific fat-stranding. The patient underwent multiple tests done for his fever including other tests including abdominal and pelvic CT as well. There is no focal infection noticed except for the left knee swelling and redness and pain. On his admission patient's BUN and creatinine were 19 and 1.6 due to his dehydration. He does have diabetes and on medication. His WBC on admission was 11.84. It is remaining stable. The patient underwent multiple workup including joint aspiration. The microbiology of the joint aspiration result of the Gram stain showed many WBC seen without bacteria. Other aspiration done the second time and pending for further tests. The Gram stain of the left knee aspiration showed white blood cell, no organism, and that was the second aspiration. Other tests including sed rate was elevated of 87. C-reactive protein was 224. The fluid that was drawn on the 1st was yellowish, cloudy fluid with WBC of 36,531 and RBC of 1287 with neutrophil 96%. The first fluid was drawn on October 24, and the second one was on October 28, again straw turbid color. The WBC went down to 7475 and the RBC to 257 with 98% neutrophil. He had other tests including a WBC scan, nuclear scan on October 28, finding of defined soft-tissue inflammation that involved the left lower extremity more focally in the femoropatellar ligament and adjacent soft tissue but no trace is seen along the left knee prosthesis or compartment. The patient is stable. He remained afebrile. He had a PICC line placement to the upper extremity for IV antibiotics. Consultation with Dr. Santhosh Olmstead, infectious disease. Arrangement had been made for the patient to go home with IV antibiotics. Discussed with the patient and his family that the patient will need to follow up with Dr. Jerry Stauffer, his orthopedic who did the left knee replacement approximately 6 to 7 months ago. The patient is otherwise stable, expressed all the understanding. Planning has been made. Patient will be discharged home with IV antibiotics and follow up with Dr. Stauffer as an outpatient. Discharge medication reconciliation is done. Resume home medication. Cornelius for pain. Celebrex as needed for pain. Senna-S for stool softener. IV antibiotic arranged. Patient will discharge home today. Activity as tolerated. [id number] diet. Job#: [id number] EV
[2017-10-30] MEDS: ACETAMINOPHEN 325 MG TAB PO PRN (19:59)
[2017-10-31 01:15] VITALS: BP 130/60
[2017-10-31 06:06] VITALS: BP 148/72
[2017-10-31] MEDS: INSULIN REGULAR, HUMAN 100 UNIT/1 ML 3ML VIAL SQ SCH (07:30)
[2017-10-31 07:43] VITALS: BP 122/71
[2017-10-31] MEDS: SENNA-S TABLET PO SCH (08:30)
[2017-10-31] MEDS: TAMSULOSIN HCL 0.4 MG CAP PO SCH (08:30)
[2017-10-31] MEDS: GABAPENTIN 300 MG CAP PO SCH (08:30)
[2017-10-31] MEDS: LOSARTAN POTASSIUM 25 MG TAB PO SCH (08:30)
[2017-10-31] MEDS: GLIMEPIRIDE 2 MG TAB PO SCH (08:30)
[2017-10-31] MEDS: HYDROCODONE/APAP 10MG-325MG TAB PO PRN (08:47)
[2017-10-31] MEDS: VANCOMYCIN 750MG/NS 150ML IVPB 150 ML IV SCH (09:00)
[2017-10-31] MEDS ORDERED: CELEBREX100 MG PO (09:55)
[2017-10-31] MEDS ORDERED: SENNA-DOCUSATE1 EACH PO (09:56)
[2017-10-31] MEDS ORDERED: NORCO 10-325 T1 EACH PO (09:57)
[2017-10-31 11:41] VITALS: BP 123/65
== END 2017-10-31 11:51 | disposition home or self-care (01) | DRG 560 ==
LOC: ER 17:43 → ERHOLD 21:36 → MED/SURG2 23:21
PROVIDERS: ADMIT Internal Medicine; ATTEND Internal Medicine
PROC: 0S9D3ZX Drainage of Left Knee Joint, Percutaneous Approach, Diagnostic (ICD-10-PCS; 2017-10-24)
PROC: 02HV33Z Insertion of Infusion Device into Superior Vena Cava, Percutaneous Approach (ICD-10-PCS; principal; 2017-10-28)
DX: T84.54XA Infection and inflammatory reaction due to internal left knee prosthesis, initial encounter (principal); M00.9 Pyogenic arthritis, unspecified; J98.11 Atelectasis; E87.0 Hyperosmolality and hypernatremia; I31.3 Pericardial effusion (noninflammatory); R10.9 Unspecified abdominal pain; E86.0 Dehydration; R73.9 Hyperglycemia, unspecified; Z79.84 Long term (current) use of oral hypoglycemic drugs; Z96.652 Presence of left artificial knee joint; I10 Essential (primary) hypertension; E78.5 Hyperlipidemia, unspecified
CPT/HCPCS: 36415; 36569; 71045; 71250; 74176; 78806; 80048; 80053; 80202; 81001; 82150; 82550; 82553; 82948; 83605; 83690; 83735; 84484; 84550; 85025; 85610; 85651; 85730; 86140; 87040; 87070; 87071; 87075; 87086; 87102; 87116; 87205; 87206; 88112; 88305; 89051; 89060; 93005; 93306; 99284; A9521; A9556; A9570; J0692; J0696; J2270; J2550; J7030; J7050

== ENCOUNTER 2022-10-16 14:46 | Inpatient (IN) | payer MEDICARE ==
[~2022-10-16] VITALS: Ht 182.9 cm; Wt 84.4 kg
[~2022-10-16 14:46] MED LIST changes: +CELEBREX100 MG PO; +DEXAMETHASONE SOD PHOS INJ 4 MG/ML SDV ONE; +GABAPENTIN300 MG PO; +GLIMEPIRIDE2 MG PO; +LABETALOL HCL 5 MG/ML 20ML VIAL ONE; +LIDOCAINE HCL 2% LOCAL INJ 5 ML SDV VIAL INJ ONE; +LOSARTAN POTASS25 MG PO; +METOCLOPRAMIDE HCL 10 MG/2ML VIAL ONE; +NORCO 10-325 T1 EACH PO; +ONDANSETRON HCL INJ 2MG/ML 2ML 2 MG/ML VIAL ONE; +POVIDONE IODINE 0.05% 0.05 % ML PO ONE; +PROPOFOL IV EMULSION 10 MG/ML 20 ML VIAL ONE; +ROCURONIUM BROMIDE 10 MG/ML 5ML VIAL IV ONE; +SENNA-DOCUSATE1 EACH PO; +SEVOFLURANE INHAL SOLN 250 ML PEN BTL ONE; +SUCCINYLCHOLINE CHLORIDE 20 MG/ML 10ML VIAL ONE; +TAMSULOSIN HCL0.4 MG PO
[2022-10-16 15:23] LABS: BASOPHILS % 0.1 % (0.0-1.0); EOSINOPHILS # (AUTO) 0.1 (0.0-0.4); EOSINOPHILS % 1.2 % (0.0-6.0); HEMATOCRIT 37.5 % (38.2-49.6); HEMOGLOBIN 12.4 g/dL (14.0-18.0); LYMPHOCYTES % 15.3 % (18.0-39.1); MEAN CORPUSCULAR HEMOGLOBIN 30.2 pg (28-32); MEAN CORPUSCULAR HGB CONC 33.1 g/dL (31-35); MEAN CORPUSCULAR VOLUME 91.2 fL (81-99); MONOCYTES # (AUTO) 0.4 (0.2-0.8); MONOCYTES % 6.3 % (4.4-11.3); NEUTROPHILS # (AUTO) 5.2 (2.1-6.9); PLATELET COUNT 198 x10e3/uL (140-360); RED BLOOD COUNT 4.11 x10e6/uL (4.3-5.7); RED CELL DISTRIBUTION WIDTH 12.5 % (11.7-14.4)
[2022-10-16 15:37] LABS: ALANINE AMINOTRANSFERASE 12 IU/L (0-55); ALBUMIN 3.7 g/dL (3.5-5.0); ALBUMIN/GLOBULIN RATIO 1.2 (0.8-2.0); ALKALINE PHOSPHATASE 74 IU/L (40-150); ANION GAP 13.5 mmol/L (8-16); BLOOD UREA NITROGEN 31 mg/dL (7-26); BUN/CREATININE RATIO 12 (6-25); CALCIUM 8.9 mg/dL (8.4-10.2); CARBON DIOXIDE 24 mmol/L (22-29); CHLORIDE 105 mmol/L (98-107); CREATINE KINASE 58 IU/L (30-200); CREATININE, SERUM 2.68 mg/dL (0.72-1.25); GLUCOSE 135 mg/dL (74-118); POTASSIUM 4.5 mmol/L (3.5-5.1); SODIUM 138 mmol/L (136-145)
[2022-10-16 16:55] LABS: CLARITY,URINE TURBID (CLEAR); COLOR,URINE RED (YELLOW); KETONES,URINE NEGATIVE (NEGATIVE); LEUKOCYTE ESTERASE ,URINE NEGATIVE (NEGATIVE); NITRITE,URINE NEGATIVE (NEGATIVE); PROTEIN,URINE DIPSTICK >=300 (NEGATIVE)
[2022-10-16 16:56] LABS: URINE UROBILINOGEN 0.2 mg/dL (0.2 - 1)
[2022-10-16 17:01] LABS: BACTERIA,URINE RARE /HPF; RBC,URINE >50 /HPF (0-5); WBC,URINE (MAN) 0-5 /HPF (0-5)
[2022-10-16 17:37] VITALS: PULSE 65; RESP 18; O2SAT 99
[2022-10-16] MEDS: SODIUM CHLORIDE 0.9% 1000ML 1,000 ML IV SCH (17:52)
[2022-10-16 20:45] VITALS: BP 176/86; PULSE 63; RESP 17; TEMP 98; O2SAT 100
[2022-10-16 21:00] VITALS: BP 176/86; PULSE 63; RESP 17; TEMP 98; O2SAT 100
[2022-10-16] MEDS ORDERED: TRULICITY0.75 MG/0. (22:49)
[2022-10-16] MEDS ORDERED: FINASTERIDE5 MG PO (22:49)
[2022-10-16] MEDS ORDERED: PIOGLITAZONE HC45 MG PO (22:49)
[2022-10-16] MEDS ORDERED: MECLIZINE HCL12.5 MG PO (22:49)
[2022-10-16] MEDS ORDERED: AMOXICILLIN500 MG PO (22:51)
[2022-10-17] VITALS (7 sets, daily range): BP systolic 121–151; BP diastolic 67–78; PULSE 61–71; RESP 18–22; TEMP 97.2–98.5; O2SAT 99–100
[2022-10-17] MEDS ORDERED: HYDRALAZINE HCL 20 MG/ML VIAL IV PRN (00:30)
[2022-10-17] MEDS ORDERED: DEXTROSE 50% SYRINGE 50 ML IV PRN (00:30)
[2022-10-17] MEDS ORDERED: HYDROCODONE/APAP 10MG-325MG TAB PO PRN (00:30)
[2022-10-17] MEDS ORDERED: MECLIZINE HCL 12.5 MG TAB PO PRN (00:30)
[2022-10-17] MEDS: INSULIN LISPRO 100 UNIT/1 ML 3ML VIAL SQ SCH ×5 (00:30→21:00)
[2022-10-17] MEDS ORDERED: CHOLESTYRAMINE 4 GM PACKET PO PRN (00:45)
[2022-10-17] MEDS: SODIUM CHLORIDE 0.9% 1000ML 1,000 ML IV SCH ×2 (04:59→17:11)
[2022-10-17 05:45] LABS: BASOPHILS % 0.4 % (0.0-1.0); EOSINOPHILS # (AUTO) 0.1 (0.0-0.4); EOSINOPHILS % 1.8 % (0.0-6.0); HEMATOCRIT 35.1 % (38.2-49.6); HEMOGLOBIN 11.7 g/dL (14.0-18.0); LYMPHOCYTES % 18.7 % (18.0-39.1); MEAN CORPUSCULAR HEMOGLOBIN 30.4 pg (28-32); MEAN CORPUSCULAR HGB CONC 33.3 g/dL (31-35); MEAN CORPUSCULAR VOLUME 91.2 fL (81-99); MONOCYTES # (AUTO) 0.5 (0.2-0.8); MONOCYTES % 8.5 % (4.4-11.3); NEUTROPHILS # (AUTO) 3.9 (2.1-6.9); NEUTROPHILS % 70.1 % (38.7-80.0); PLATELET COUNT 184 x10e3/uL (140-360); RED BLOOD COUNT 3.85 x10e6/uL (4.3-5.7); RED CELL DISTRIBUTION WIDTH 12.2 % (11.7-14.4)
[2022-10-17 06:11] LABS: ANION GAP 10.9 mmol/L (8-16); CALCIUM 8.6 mg/dL (8.4-10.2); CREATININE, SERUM 2.28 mg/dL (0.72-1.25); POTASSIUM 3.9 mmol/L (3.5-5.1)
[2022-10-17] MEDS: FINASTERIDE 5 MG TAB PO SCH (09:14)
[2022-10-17] MEDS: SENNA-S TABLET PO SCH ×2 (09:14→16:17)
[2022-10-17] MEDS: GABAPENTIN 300 MG CAP PO SCH ×2 (09:14→16:23)
[2022-10-17] MEDS: LACTOBACILLUS ACIDOPHILUS CAPSULE PO SCH ×3 (09:15→21:43)
[2022-10-17] MEDS: TAMSULOSIN HCL 0.4 MG CAP PO SCH (16:17)
[2022-10-17] MEDS ORDERED: MYRBETRIQ25 MG (21:57)
[2022-10-17] MEDS ORDERED: ATORVASTATIN CA20 MG PO (21:57)
[2022-10-17] MEDS ORDERED: TRULICITY0.75 MG/0. (21:57)
[2022-10-18] VITALS (8 sets, daily range): BP systolic 96–152; BP diastolic 49–84; PULSE 62–69; RESP 17–20; TEMP 97.9–98.4; O2SAT 97–100
[2022-10-18] MEDS: SODIUM CHLORIDE 0.9% 1000ML 1,000 ML IV SCH ×2 (05:35→17:13)
[2022-10-18 05:42] LABS: BASOPHILS % 0.4 % (0.0-1.0); EOSINOPHILS # (AUTO) 0.1 (0.0-0.4); HEMATOCRIT 33.4 % (38.2-49.6); HEMOGLOBIN 11.1 g/dL (14.0-18.0); LYMPHOCYTES # (AUTO) 1.1 (1.0-3.2); LYMPHOCYTES % 19.5 % (18.0-39.1); MEAN CORPUSCULAR HEMOGLOBIN 30.1 pg (28-32); MEAN CORPUSCULAR HGB CONC 33.2 g/dL (31-35); MEAN CORPUSCULAR VOLUME 90.5 fL (81-99); MONOCYTES # (AUTO) 0.4 (0.2-0.8); MONOCYTES % 8.2 % (4.4-11.3); NEUTROPHILS # (AUTO) 3.8 (2.1-6.9); NEUTROPHILS % 69.5 % (38.7-80.0); PLATELET COUNT 172 x10e3/uL (140-360); RED BLOOD COUNT 3.69 x10e6/uL (4.3-5.7); RED CELL DISTRIBUTION WIDTH 12.3 % (11.7-14.4)
[2022-10-18 06:10] LABS: ANION GAP 11.9 mmol/L (8-16); CALCIUM 8.4 mg/dL (8.4-10.2); CREATININE, SERUM 2.3 mg/dL (0.72-1.25); POTASSIUM 3.9 mmol/L (3.5-5.1)
[2022-10-18] MEDS: INSULIN LISPRO 100 UNIT/1 ML 3ML VIAL SQ SCH ×4 (07:30→21:00)
[2022-10-18] MEDS: LACTOBACILLUS ACIDOPHILUS CAPSULE PO SCH ×3 (12:40→21:00)
[2022-10-18] MEDS: FINASTERIDE 5 MG TAB PO SCH (12:40)
[2022-10-18] MEDS: SENNA-S TABLET PO SCH ×2 (12:40→17:13)
[2022-10-18] MEDS: GABAPENTIN 300 MG CAP PO SCH ×2 (12:40→17:13)
[2022-10-18] MEDS: TAMSULOSIN HCL 0.4 MG CAP PO SCH (17:13)
[2022-10-19] VITALS (8 sets, daily range): BP systolic 109–165; BP diastolic 53–87; PULSE 66–72; RESP 16–20; TEMP 97.7–98.3; O2SAT 99–100
[2022-10-19] MEDS: SODIUM CHLORIDE 0.9% 1000ML 1,000 ML IV SCH ×2 (06:04→22:03)
[2022-10-19 06:09] LABS: BASOPHILS % 0.5 % (0.0-1.0); EOSINOPHILS # (AUTO) 0.1 (0.0-0.4); EOSINOPHILS % 2.2 % (0.0-6.0); HEMATOCRIT 33.5 % (38.2-49.6); HEMOGLOBIN 11.1 g/dL (14.0-18.0); LYMPHOCYTES # (AUTO) 1.2 (1.0-3.2); LYMPHOCYTES % 18.1 % (18.0-39.1); MEAN CORPUSCULAR HEMOGLOBIN 30.4 pg (28-32); MEAN CORPUSCULAR HGB CONC 33.1 g/dL (31-35); MEAN CORPUSCULAR VOLUME 91.8 fL (81-99); MONOCYTES # (AUTO) 0.6 (0.2-0.8); MONOCYTES % 9.3 % (4.4-11.3); NEUTROPHILS # (AUTO) 4.4 (2.1-6.9); NEUTROPHILS % 69.4 % (38.7-80.0); PLATELET COUNT 179 x10e3/uL (140-360); RED BLOOD COUNT 3.65 x10e6/uL (4.3-5.7); RED CELL DISTRIBUTION WIDTH 12.3 % (11.7-14.4)
[2022-10-19] MEDS ORDERED: IOPAMIDOL 610MG/1ML 300 MG/ML VIAL IV ONE (06:24)
[2022-10-19 06:34] LABS: ANION GAP 13.2 mmol/L (8-16); CALCIUM 8.5 mg/dL (8.4-10.2); CREATININE, SERUM 2.31 mg/dL (0.72-1.25); POTASSIUM 4.2 mmol/L (3.5-5.1)
[2022-10-19] MEDS: INSULIN LISPRO 100 UNIT/1 ML 3ML VIAL SQ SCH ×4 (07:30→21:00)
[2022-10-19] MEDS ORDERED: METHYLENE BLUE 1% INJ 10 ML VIAL INJ ONE (08:38)
[2022-10-19] MEDS: FINASTERIDE 5 MG TAB PO SCH (09:00)
[2022-10-19] MEDS: LACTOBACILLUS ACIDOPHILUS CAPSULE PO SCH ×3 (09:00→21:52)
[2022-10-19] MEDS: SENNA-S TABLET PO SCH ×2 (09:00→16:28)
[2022-10-19] MEDS: GABAPENTIN 300 MG CAP PO SCH ×2 (09:00→16:28)
[2022-10-19] MEDS ORDERED: SUGAMMADEX SODIUM 200 MG/2 ML VIAL IV ONE (09:13)
[2022-10-19] MEDS: FENTANYL CITRATE/PF 100MCG/2 ML INJ ONE ×2 (09:43→09:52)
[2022-10-19] MEDS ORDERED: PHENAZOPYRIDINE HCL 100 MG TAB PO PRN (09:45)
[2022-10-19] MEDS ORDERED: LIDOCAINE HCL 1% LOCAL INJ 20 ML VIAL ONE (10:08)
[2022-10-19] MEDS ORDERED: IOPAMIDOL 370 MG/ML 100 ML INFUS..BTL INJ ONE (10:08)
[2022-10-19] MEDS ORDERED: SODIUM CHLORIDE 0.9% 250ML 250 ML ONE (10:09)
[2022-10-19] MEDS ORDERED: FENTANYL CITRATE/PF 100MCG/2 ML INJ ONE ×2 (14:41)
[2022-10-19] MEDS: TAMSULOSIN HCL 0.4 MG CAP PO SCH (16:28)
[2022-10-20] VITALS (8 sets, daily range): BP systolic 99–151; BP diastolic 61–98; PULSE 63–74; RESP 18–20; TEMP 98.1–99.1; O2SAT 95–100
[2022-10-20] MEDS: ACETAMINOPHEN/CODEINE 300MG - 30MG TAB PO PRN (00:49)
[2022-10-20 06:37] LABS: BASOPHILS % 0.1 % (0.0-1.0); EOSINOPHILS # (AUTO) 0.1 (0.0-0.4); EOSINOPHILS % 1.3 % (0.0-6.0); HEMATOCRIT 29.6 % (38.2-49.6); LYMPHOCYTES % 14.7 % (18.0-39.1); MEAN CORPUSCULAR HEMOGLOBIN 30.1 pg (28-32); MEAN CORPUSCULAR HGB CONC 33.8 g/dL (31-35); MEAN CORPUSCULAR VOLUME 89.2 fL (81-99); MONOCYTES # (AUTO) 0.5 (0.2-0.8); MONOCYTES % 7.3 % (4.4-11.3); NEUTROPHILS # (AUTO) 5.3 (2.1-6.9); NEUTROPHILS % 76.2 % (38.7-80.0); PLATELET COUNT 154 x10e3/uL (140-360); RED BLOOD COUNT 3.32 x10e6/uL (4.3-5.7); RED CELL DISTRIBUTION WIDTH 12.5 % (11.7-14.4)
[2022-10-20 07:12] LABS: ANION GAP 10.2 mmol/L (8-16); CREATININE, SERUM 2.32 mg/dL (0.72-1.25); POTASSIUM 4.2 mmol/L (3.5-5.1)
[2022-10-20] MEDS: INSULIN LISPRO 100 UNIT/1 ML 3ML VIAL SQ SCH ×4 (07:30→20:39)
[2022-10-20] MEDS: LACTOBACILLUS ACIDOPHILUS CAPSULE PO SCH ×3 (08:27→20:39)
[2022-10-20] MEDS: FINASTERIDE 5 MG TAB PO SCH (08:27)
[2022-10-20] MEDS: SENNA-S TABLET PO SCH ×2 (08:27→16:58)
[2022-10-20] MEDS: GABAPENTIN 300 MG CAP PO SCH ×2 (08:27→16:58)
[2022-10-20] MEDS: SODIUM CHLORIDE 0.9% 1000ML 1,000 ML IV SCH (14:46)
[2022-10-20] MEDS: TAMSULOSIN HCL 0.4 MG CAP PO SCH (16:58)
[2022-10-21] VITALS (8 sets, daily range): BP systolic 106–161; BP diastolic 54–82; PULSE 61–73; RESP 16–21; TEMP 97.7–98.5; O2SAT 96–99
[2022-10-21] MEDS: ACETAMINOPHEN/CODEINE 300MG - 30MG TAB PO PRN (04:29)
[2022-10-21 05:48] LABS: BASOPHILS % 0.4 % (0.0-1.0); EOSINOPHILS # (AUTO) 0.1 (0.0-0.4); EOSINOPHILS % 2.1 % (0.0-6.0); HEMATOCRIT 30.8 % (38.2-49.6); HEMOGLOBIN 10.1 g/dL (14.0-18.0); LYMPHOCYTES # (AUTO) 1.1 (1.0-3.2); LYMPHOCYTES % 18.9 % (18.0-39.1); MEAN CORPUSCULAR HEMOGLOBIN 30.2 pg (28-32); MEAN CORPUSCULAR HGB CONC 32.8 g/dL (31-35); MEAN CORPUSCULAR VOLUME 92.2 fL (81-99); MONOCYTES # (AUTO) 0.6 (0.2-0.8); MONOCYTES % 9.7 % (4.4-11.3); NEUTROPHILS # (AUTO) 3.9 (2.1-6.9); NEUTROPHILS % 68.4 % (38.7-80.0); PLATELET COUNT 155 x10e3/uL (140-360); RED BLOOD COUNT 3.34 x10e6/uL (4.3-5.7); RED CELL DISTRIBUTION WIDTH 12.4 % (11.7-14.4)
[2022-10-21 06:14] LABS: ALBUMIN 2.9 g/dL (3.5-5.0); ALBUMIN/GLOBULIN RATIO 1.1 (0.8-2.0); ANION GAP 9.4 mmol/L (8-16); CALCIUM 8.4 mg/dL (8.4-10.2); CREATININE, SERUM 2.51 mg/dL (0.72-1.25); POTASSIUM 4.4 mmol/L (3.5-5.1)
[2022-10-21] MEDS: INSULIN LISPRO 100 UNIT/1 ML 3ML VIAL SQ SCH ×4 (07:30→21:00)
[2022-10-21] MEDS: LACTOBACILLUS ACIDOPHILUS CAPSULE PO SCH ×3 (08:29→20:22)
[2022-10-21] MEDS: FINASTERIDE 5 MG TAB PO SCH (08:29)
[2022-10-21] MEDS: SENNA-S TABLET PO SCH ×2 (08:29→16:26)
[2022-10-21] MEDS: GABAPENTIN 300 MG CAP PO SCH ×2 (08:29→16:26)
[2022-10-21] MEDS: TAMSULOSIN HCL 0.4 MG CAP PO SCH (16:26)
[2022-10-22 00:30] VITALS: BP 140/69; PULSE 69; RESP 16; TEMP 98.6; O2SAT 98
[2022-10-22 04:25] VITALS: BP 131/69; PULSE 70; RESP 18; TEMP 98.4; O2SAT 96
[2022-10-22] MEDS: INSULIN LISPRO 100 UNIT/1 ML 3ML VIAL SQ SCH ×2 (07:30→11:30)
[2022-10-22 07:54] VITALS: BP 137/77; PULSE 69; RESP 16; TEMP 98.4; O2SAT 95
[2022-10-22] MEDS: GABAPENTIN 300 MG CAP PO SCH (09:13)
[2022-10-22] MEDS: LACTOBACILLUS ACIDOPHILUS CAPSULE PO SCH (09:13)
[2022-10-22] MEDS: SENNA-S TABLET PO SCH (09:13)
[2022-10-22] MEDS: FINASTERIDE 5 MG TAB PO SCH (09:13)
[2022-10-22 12:15] VITALS: BP 135/82; PULSE 70; RESP 16; TEMP 98.6; O2SAT 96
== END 2022-10-22 14:16 | disposition home or self-care (01) | DRG 669 ==
LOC: ER 15:13 → ERHOLD 16:35 → MED/SURG3 20:36
PROVIDERS: ADMIT Internal Medicine; ATTEND Internal Medicine
PROC: 0TBB8ZZ Excision of Bladder, Via Natural or Artificial Opening Endoscopic (ICD-10-PCS; principal; 2022-10-19 08:14)
PROC: BT1D1ZZ Fluoroscopy of Right Kidney, Ureter and Bladder using Low Osmolar Contrast (ICD-10-PCS; 2022-10-19 08:14)
PROC: 0T9630Z Drainage of Right Ureter with Drainage Device, Percutaneous Approach (ICD-10-PCS; 2022-10-22)
PROC: 0T9030Z Drainage of Right Kidney with Drainage Device, Percutaneous Approach (ICD-10-PCS; 2022-10-22)
DX: C67.0 Malignant neoplasm of trigone of bladder (principal); N13.2 Hydronephrosis with renal and ureteral calculous obstruction; N17.9 Acute kidney failure, unspecified; N18.4 Chronic kidney disease, stage 4 (severe); R31.0 Gross hematuria; R30.0 Dysuria; N40.1 Benign prostatic hyperplasia with lower urinary tract symptoms; R35.0 Frequency of micturition; R80.9 Proteinuria, unspecified; E78.5 Hyperlipidemia, unspecified; I12.9 Hypertensive chronic kidney disease with stage 1 through stage 4 chronic kidney disease, or unspecified chronic kidney disease; E11.22 Type 2 diabetes mellitus with diabetic chronic kidney disease; Z96.652 Presence of left artificial knee joint; R39.2 Extrarenal uremia; M19.90 Unspecified osteoarthritis, unspecified site; Z79.899 Other long term (current) drug therapy; Z20.822 Contact with and (suspected) exposure to COVID-19
CPT/HCPCS: 0223U; 36415; 50433; 72195; 74176; 74420; 74470; 76942; 80048; 80053; 81001; 82550; 82553; 82948; 83735; 84484; 85025; 87086; 88305; 88307; 88342; 94799; 96372; 99284; C1729; C1758; C1769; C1887; C2617; J0330; J0692; J1100; J2001; J2405; J2765; J7030; J7050; Q9967

== ENCOUNTER 2022-10-28 19:37 | Emergency (ER) | payer MEDICARE ==
[~2022-10-28] VITALS: Ht 182.9 cm; Wt 84.4 kg
[~2022-10-28 19:37] MED LIST changes: +AMOXICILLIN500 MG PO; +ATORVASTATIN CA20 MG PO; -DEXAMETHASONE SOD PHOS INJ 4 MG/ML SDV ONE; +FINASTERIDE5 MG PO; -LABETALOL HCL 5 MG/ML 20ML VIAL ONE; -LIDOCAINE HCL 2% LOCAL INJ 5 ML SDV VIAL INJ ONE; +MECLIZINE HCL12.5 MG PO; -METOCLOPRAMIDE HCL 10 MG/2ML VIAL ONE; +MYRBETRIQ25 MG; -ONDANSETRON HCL INJ 2MG/ML 2ML 2 MG/ML VIAL ONE; +PIOGLITAZONE HC45 MG PO; -POVIDONE IODINE 0.05% 0.05 % ML PO ONE; -PROPOFOL IV EMULSION 10 MG/ML 20 ML VIAL ONE; -ROCURONIUM BROMIDE 10 MG/ML 5ML VIAL IV ONE; -SEVOFLURANE INHAL SOLN 250 ML PEN BTL ONE; -SUCCINYLCHOLINE CHLORIDE 20 MG/ML 10ML VIAL ONE; +TRULICITY0.75 MG/0.
[2022-10-28 19:40] VITALS: O2SAT 100
[2022-10-28 20:07] VITALS: BP 149/62; PULSE 81; RESP 18
== END 2022-10-28 20:10 | disposition home or self-care (01) ==
LOC: ER 19:44
DX: T83.031A Leakage of indwelling urethral catheter, initial encounter (principal); C67.9 Malignant neoplasm of bladder, unspecified; I10 Essential (primary) hypertension; E11.9 Type 2 diabetes mellitus without complications; Z79.84 Long term (current) use of oral hypoglycemic drugs; Z79.85 Long-term (current) use of injectable non-insulin antidiabetic drugs; E78.5 Hyperlipidemia, unspecified; Z79.899 Other long term (current) drug therapy; Y84.6 Urinary catheterization as the cause of abnormal reaction of the patient, or of later complication, without mention of misadventure at the time of the procedure; Y92.009 Unspecified place in unspecified non-institutional (private) residence as the place of occurrence of the external cause
CPT/HCPCS: 99283